=== PATIENT | female | born 1995 | race Caucasian/White ===

== ENCOUNTER 2019-02-24 20:43 | Emergency (ER) | payer OTHER ==
[~2019-02-24] VITALS: Ht 165.1 cm; Wt 53.6 kg
[2019-02-24] MEDS ORDERED: PHENERGAN 25 TA25 MG PO (21:08)
[2019-02-24] MEDS ORDERED: DICLEGIS PO (21:08)
[2019-02-24 21:12] LABS: BASO % 0.4 % (0.0-2.0); EOS # 0.2 (0.0-0.7); EOS % 1.4 % (0-4.0); GRAN # 8.7 (1.4-6.5); GRAN % 78.6 % (42.2-75.2); HEMATOCRIT 37.3 % (37.0-47.0); HEMOGLOBIN 12.9 g/dl (12.5-16.0); LYMPH # 1.3 (1.2-3.4); LYMPH % 11.6 % (20.0-51.0); MEAN CELL VOLUME 89 fl (80.0-100.0); MEAN CORPUSCULAR HEMOGLOBIN 31 pg (27.0-31.0); MEAN CORPUSCULAR HGB CONC 35 g/dl (33.0-37.0); MONO # 0.9 (0.1-0.6); MONO % 7.7 % (1.7-9.3); PLATELET COUNT 217 K/mm3 (130-400); RED BLOOD COUNT 4.17 M/mm3 (4.10-5.30); REDCELL DISTRIBUTION WIDTH-CV 12.4 % (11.5-14.5)
[2019-02-24 21:31] LABS: COLLECTION METHOD CLEAN CATCH
[2019-02-24 21:37] LABS: ALBUMIN 4.3 gm/dL (3.5-5.0); BILIRUBIN,TOTAL 0.8 mg/dL (0.0-1.0); CALCIUM 9.6 mg/dL (8.4-10.2); CREATININE, serum 0.56 (0.52-1.25); POTASSIUM 3.6 mmol/L (3.4-5.0); TOTAL PROTEIN 7.5 gm/dL (6.4-8.2)
[2019-02-24 21:53] LABS: URINE COLOR Yellow
[2019-02-24 21:54] LABS: PH 5 (5-8); URINE APPEARANCE Cloudy
[2019-02-24 21:55] LABS: URINE GLUCOSE Negative (NEGATIVE); URINE PROTEIN(semi-quant) 2+ (NEGATIVE)
[2019-02-24 21:58] LABS: URINE BILIRUBIN Negative (NEGATIVE); URINE BLOOD 3+ (NEGATIVE); URINE KETONE Negative (NEGATIVE); URINE NITRATE Negative (NEGATIVE); URINE UROBILINOGEN Negative (NEGATIVE)
[2019-02-24 21:59] LABS: URINE LEUKOCYTE ESTERASE 2+ (NEGATIVE)
[2019-02-24 22:04] LABS: MUCOUS Present /lpf; SQUAMOUS EPITHELIAL 20-50 /hpf; URINE BACTERIA None Seen /hpf
[2019-02-24 22:20] VITALS: BP 121/78; PULSE 102; TEMP 98.4
== END 2019-02-24 22:20 | disposition home or self-care (01) ==
LOC: COL.ER 20:43
PROVIDERS: Emergency Medicine
DX: O21.9 Vomiting of pregnancy, unspecified (principal); Z3A.00 Weeks of gestation of pregnancy not specified
CPT/HCPCS: J2405; J2550; J7030

== ENCOUNTER 2019-03-05 08:53 | Emergency (ER) | payer OTHER ==
[~2019-03-05] VITALS: Ht 165.1 cm; Wt 53.3 kg
[~2019-03-05 08:53] MED LIST: DICLEGIS PO; PHENERGAN 25 TA25 MG PO
[2019-03-05 08:56] VITALS: TEMP 97.8
[2019-03-05 09:50] LABS: COLLECTION METHOD CLEAN CATCH
[2019-03-05 10:08] LABS: MUCOUS Present /lpf; PH 5 (5-8); URINE APPEARANCE Hazy; URINE BACTERIA Rare /hpf; URINE BILIRUBIN Negative (NEGATIVE); URINE BLOOD Negative (NEGATIVE); URINE COLOR Yellow; URINE GLUCOSE Negative (NEGATIVE); URINE KETONE 2+ (NEGATIVE); URINE LEUKOCYTE ESTERASE Trace (NEGATIVE); URINE NITRATE Negative (NEGATIVE); URINE PROTEIN(semi-quant) 2+ (NEGATIVE); URINE RBC 0-2 /hpf
[2019-03-05 10:09] LABS: BASO % 0.5 % (0.0-2.0); EOS # 0.1 (0.0-0.7); EOS % 1.5 % (0-4.0); GRAN # 4.7 (1.4-6.5); HEMOGLOBIN 12.2 g/dl (12.5-16.0); LYMPH # 1.2 (1.2-3.4); LYMPH % 18.6 % (20.0-51.0); MEAN CELL VOLUME 89 fl (80.0-100.0); MEAN CORPUSCULAR HEMOGLOBIN 31 pg (27.0-31.0); MEAN CORPUSCULAR HGB CONC 35 g/dl (33.0-37.0); MEAN PLATELET VOLUME 10.2 fl (7.4-10.4); MONO # 0.5 (0.1-0.6); MONO % 8.1 % (1.7-9.3); PLATELET COUNT 223 K/mm3 (130-400); RED BLOOD COUNT 3.91 M/mm3 (4.10-5.30); REDCELL DISTRIBUTION WIDTH-CV 12.2 % (11.5-14.5)
[2019-03-05 10:10] LABS: HEMATOCRIT 34.8 % (37.0-47.0)
[2019-03-05 10:27] LABS: ALBUMIN 4.4 gm/dL (3.5-5.0); ALKALINE PHOSPHATASE 51 U/L (50-136); ANION GAP 14 mmol/L (7-16); AST,SGOT 28 U/L (15-37); BILIRUBIN,TOTAL 0.7 mg/dL (0.0-1.0); BLOOD UREA NITROGEN 10 mg/dL (7-17); CALCIUM 9.2 mg/dL (8.4-10.2); CARBON DIOXIDE 23 mmol/L (22-30); CHLORIDE 103 mmol/L (98-107); CREATININE, serum 0.52 (0.52-1.25); GLUCOSE 82 mg/dL (74-106); SODIUM 141 mmol/L (137-145); TOTAL PROTEIN 7.7 gm/dL (6.4-8.2)
[2019-03-05 10:28] LABS: ALANINE AMINOTRANSFERASE < 6 U/L (9-52); POTASSIUM 4.1 mmol/L (3.4-5.0)
[2019-03-05 11:01] VITALS: BP 112/69; PULSE 78
== END 2019-03-05 11:02 | disposition home or self-care (01) ==
LOC: COL.ER 08:53
PROVIDERS: Family Medicine; Nurse Practitioner Primary Care
DX: O21.8 Other vomiting complicating pregnancy (principal); Z3A.01 Less than 8 weeks gestation of pregnancy; Z98.890 Other specified postprocedural states
CPT/HCPCS: J2550; J7030

== ENCOUNTER 2019-06-19 18:49 | Outpatient (CLI) | payer OTHER ==
[~2019-06-19] VITALS: Ht 165.1 cm; Wt 56.4 kg
--- NOTE | 2019-06-19 18:55 | NUR ---
PT TO UNIT AMBULATORY WITH COMPLAINTS OF DECREASED FM. [place], G1L0 AT 22.5 WEEKS TODAY. ORIENTED TO ROOM, CHANGED INTO GOWN. 190- FHT'S DOPPLERED IN THE 150'S, VS OBTAINED.
[2019-06-19 19:05] VITALS: BP 109/64; PULSE 82; TEMP 98.4
[2019-06-19] MEDS ORDERED: PRENATAL PO (19:08)
[2019-06-19] MEDS ORDERED: TYLENOL 500MG500 MG PO (19:08)
== END 2019-06-19 19:40 | disposition home or self-care (01) ==
LOC: LDRO 18:49 → LDR 18:55 → LDRO 19:40
DX: O36.8120 Decreased fetal movements, second trimester, not applicable or unspecified (principal); Z3A.22 22 weeks gestation of pregnancy
CPT/HCPCS: OP